=== PATIENT | female | born 1960 | race Hispanic/Latino ===

== ENCOUNTER 2017-05-26 17:07 | Emergency (ER) | payer BC ==
[2017-05-26 17:07] VITALS: BMI 20.5
[2017-05-26] MEDS ORDERED: Sodium Chloride 0.9% 1,000 ML IV STA (17:51)
[2017-05-26 18:02] VITALS: TEMP 97.6
[2017-05-26 18:29] LABS: URINE BILIRUBIN NEGATIVE (NEGATIVE); URINE BLOOD NEGATIVE (NEGATIVE); URINE GLUCOSE (UA) NEGATIVE (NEGATIVE); URINE KETONE NEGATIVE (NEGATIVE); URINE LEUKOCYTE ESTERASE NEGATIVE Leu/uL (NEGATIVE); URINE PROTEIN TRACE mg/dL (<30 mg/dL); URINE UROBILINOGEN 0.2 E.U./dL (<1 E.U./dL)
[2017-05-26 18:38] LABS: URINE APPEARANCE CLEAR (CLEAR); URINE COLOR YELLOW (YELLOW)
[2017-05-26 18:41] LABS: BASO # 0.02 K/mm3 (0.0-2.0); BASO % 0.5 % (0.0-3.0); EOS # 0.2 (0.0-0.7); EOS % 3.9 % (1.5-5.0); GRAN # 2.18 (1.4-6.5); HEMATOCRIT 38.7 % (36.0-48.0); LYMPH # 1.5 (1.2-3.4); LYMPH % 35.5 % (22.0-35.0); MEAN CELL VOLUME 89.6 fl (80.0-105.0); MEAN CORPUSCULAR HEMOGLOBIN 28.9 pg (25.0-35.0); MEAN CORPUSCULAR HGB CONC 32.3 g/dl (31.0-37.0); MEAN PLATELET VOLUME 10.6 fl (7.0-11.0); MONO # 0.3 (0.1-0.6); MONO % 7.1 % (1.0-6.0); RED CELL DISTRIBUTION WIDTH 12.4 % (11.5-14.5); WHITE BLOOD COUNT 4.1 10^3/ul (4.5-11.0)
[2017-05-26 18:42] LABS: URINE BACTERIA FEW (NEG); URINE RBC NEGATIVE /hpf (0-2)
[2017-05-26 18:52] LABS: ALB/GLOB RATIO 1.3 (1.1-1.8); ALKALINE PHOSPHATASE 96 U/L (38-126); ALT/SGPT 38 U/L (7-56); AST/SGOT 41 U/L (14-36); BILIRUBIN,TOTAL 0.5 mg/dL (0.2-1.3); BLOOD UREA NITROGEN 14 mg/dL (7-21); CALCIUM 9.5 mg/dL (8.4-10.5); CARBON DIOXIDE 31 mmol/L (21-33); CHLORIDE 101 mmol/L (98-107); GFR AFRICAN-AMERICAN > 60; GLUCOSE,RANDOM 94 mg/dL (70-110); LIPASE 67 U/L (23-300); POTASSIUM 4.3 mmol/L (3.6-5.0); SODIUM 137 mmol/L (132-148)
[2017-05-26 18:58] LABS: INR 1.09 (0.93-1.08); PARTIAL THROMBOPLASTIN TIME 32.4 Seconds (25.1-36.5)
[2017-05-26] MEDS ORDERED: Iohexol 350 MG/100 ML VIAL ONE (19:03)
--- NOTE | 2017-05-26 20:33 | CT ---
EXAM: CT Abdomen and Pelvis With Intravenous Contrast EXAM DATE/TIME: 05/26/2017 5:55 PM CLINICAL HISTORY: 57 years old, female; Pain; Abdominal pain; Prior surgery; Surgery type: Appendectomy - TECHNIQUE: Axial computed tomography images of the abdomen and pelvis with intravenous contrast. All CT scans at this facility use one or more dose reduction techniques, viz.: automated exposure control; ma/kV adjustment per patient size (including targeted exams where dose is matched to indication; i.e. head); or iterative reconstruction technique. Coronal and sagittal reformatted images were created and reviewed. CONTRAST: 94 mL of OMNI 350 administered intravenously. COMPARISON: Prior CT abdomen and pelvis of 2016-08-13 FINDINGS: LIMITATIONS: Mild streak/motion artifact. LOWER THORAX: Stable appearance of scarring in the lingula anteriorly. ABDOMEN: LIVER: Mild periportal edema in the liver. Enlargement of the intrahepatic IVC and hepatic veins. This finding was also seen on the prior CT. It could be due to IV fluid administration, but can also be a sign of right heart dysfunction. Recommend clinical correlation. In GALLBLADDER AND BILE DUCTS: No CT evidence of acute cholecystitis. No evidence of significant biliary ductal dilatation. PANCREAS: No CT evidence of acute pancreatitis. SPLEEN: No acute abnormality of the spleen identified. ADRENALS: No acute abnormality of the adrenal glands identified. KIDNEYS AND URETERS: No acute abnormality of the kidneys identified. No evidence of significant hydrouereteronephrosis. STOMACH AND BOWEL: No acute abnormality of the stomach, small bowel or colon identified. No evidence of bowel obstruction. APPENDIX: Normal appendix is not seen, and there is a reported history of previous appendectomy. PELVIS: BLADDER: Mild thickening of the bladder wall. REPRODUCTIVE: Patient appears to be post partial hysterectomy. Recommend correlation with surgical history. No evidence of large adnexal masses. ABDOMEN and PELVIS: INTRAPERITONEAL SPACE: No evidence of free intraperitoneal air or fluid. BONES/JOINTS: No acute fractures or other acute bony abnormality noted. SOFT TISSUES: No acute abnormality of the visualized soft tissues is seen. VASCULATURE: No evidence of abdominal aortic aneurysm. No evidence of periaortic hemorrhage. LYMPH NODES: No evidence of diffuse lymphadenopathy. IMPRESSION: - Mild periportal edema in the liver. This is a nonspecific finding, which can be seen with IV fluid administration. Acute liver disease such as hepatitis can also cause periportal edema, however, and recommend correlation with the clinical presentation and LFTs. - Mild bladder wall thickening. This is a nonspecific finding, but can be seen with cystitis. Recommend clinical correlation. - Otherwise, no evidence of significant acute process. - See above for remaining findings.
[2017-05-26] MEDS ORDERED: Morphine 2 mg/ml ISec IVP STA (20:40)
--- NOTE | 2017-05-26 20:45 | ED PDOC ---
Arrival/HPI - General Chief Complaint: Female Genitourinary Time Seen by Provider: 05/26/17 17:38 Historian: Patient - History of Present Illness Narrative History of Present Illness (Text): 05/26/17 20:42 57yo female with no PMHx who present with complaint of suprapubic abdominal pain , right sided back pain and burning sensation at the end of urination. Notes that she has been on Macrobid for 5days without relieve. Denies nausea, vomiting , diarrhea, constipation, hematuria, chest pain, any other complaint. Past Medical History - Provider Review Nursing Documentation Reviewed: Yes - Infectious Disease Hx of Infectious Diseases: None - Tetanus Immunization Tetanus Immunization: Unknown - Reproductive Menopause: Yes - Cardiac Hx Cardiac Disorders: No Hx Pacemaker: No - Pulmonary Hx Asthma: Yes - Neurological Hx Neurological Disorder: No Hx Paralysis: No - HEENT Hx HEENT Disorder: No - Renal Hx Renal Disorder: No - Endocrine/Metabolic Hx Endocrine Disorders: No - Hematological/Oncological Hx Blood Transfusions: No Hx Blood Transfusion Reaction: No - Integumentary Hx Dermatological Disorder: No - Musculoskeletal/Rheumatological Hx Musculoskeletal Disorders: Yes (RA) Hx Rheumatoid Arthritis: Yes - Gastrointestinal Hx Gastrointestinal Disorders: No Hx Constipation: Yes - Genitourinary/Gynecological Hx Genitourinary Disorders: No - Psychiatric Hx Anxiety: Yes Hx Substance Use: No - Past Surgical History Past Surgical History: No Previous - Surgical History Hx Appendectomy: Yes Hx Section: Yes - Anesthesia Hx Anesthesia: Yes - Suicidal Assessment Feels Threatened In Home Enviroment: No Family/Social History - Physician Review Nursing Documentation Reviewed: Yes Family/Social History: Unknown Family HX Smoking Status: Never Smoked Hx Alcohol Use: No Hx Substance Use: No Hx Substance Use Treatment: No Allergies/Home Meds Allergies/Adverse Reactions: Allergies No Known Allergies Allergy (Verified 08/12/16 20:12) Home Medications: Home Meds Medication Instructions Recorded Confirmed Clonazepam [Klonopin] 2 mg PO HS 12/27/15 05/26/17 DULoxetine [Cymbalta] 30 mg PO QAM 12/27/15 05/26/17 Trazodone HCl [Trazodone HCl] 300 mg PO HS 12/27/15 05/26/17 tiZANidine [Zanaflex] 4 mg PO HS 12/27/15 05/26/17 Esomeprazole Magnesium [Nexium] 40 mg PO DAILY 12/30/15 05/26/17 Polyethylene Glycol 3350 [Miralax] 17 gm PO HS 12/30/15 08/12/16 Review of Systems - Physician Review All systems were reviewed & negative as marked: Yes - Review of Systems Constitutional: Normal Eyes: Normal ENT: Normal Respiratory: Normal Cardiovascular: Normal Gastrointestinal: Abdominal Pain. absent: Constipation, Diarrhea, Nausea, Vomiting, Hematochezia, Hematemesis Genitourinary Female: Dysuria. absent: Frequency, Hematuria Musculoskeletal: Normal Skin: Normal Neurological: Normal Endocrine: Normal Hemo/Lymphatic: Normal Psychiatric: Normal Physical Exam Vital Signs Reviewed: Yes Vital Signs Temp Pulse Resp BP Pulse Ox 05/26/17 18:01 97.6 F 77 17 97 05/26/17 17:30 98 F 78 16 119/81 98 Temperature: Afebrile Blood Pressure: Normal Pulse: Regular Respiratory Rate: Normal Appearance: Positive for: Well-Appearing, Non-Toxic, Comfortable Pain Distress: None Mental Status: Positive for: Alert and Oriented X 3 - Systems Exam Head: Present: Atraumatic, Normocephalic Pupils: Present: PERRL Extroacular Muscles: Present: EOMI Conjunctiva: Present: Normal Mouth: Present: Moist Mucous Membranes Neck: Present: Normal Range of Motion Respiratory/Chest: Present: Clear to Auscultation, Good Air Exchange. No: Respiratory Distress, Accessory Muscle Use Cardiovascular: Present: Regular Rate and Rhythm, Normal S1, S2. No: Murmurs Abdomen: Present: Normal Bowel Sounds, Other (Soft). No: Tenderness, Distention , Peritoneal Signs, Rebound, Guarding, McBurney's Point Tender, Rovsing's Sign Present Back: Present: Normal Inspection. No: CVA Tenderness Upper Extremity: Present: Normal Inspection. No: Cyanosis, Edema Lower Extremity: Present: Normal Inspection. No: Edema Neurological: Present: GCS=15, CN II-XII Intact, Speech Normal Skin: Present: Warm, Dry, Normal Color. No: Rashes Psychiatric: Present: Alert, Oriented x 3, Normal Insight, Normal Concentration Medical Decision Making ED Course and Treatment: 05/26/17 20:45 PT present for stated history. She was hemodyanmidally stable in ED. Her pain was controlled. Lab was unremarkable . No UTI was noted. Abdominal/Pelvic CT IMPRESSION: - Mild periportal edema in the liver. This is a nonspecific finding, which can be seen with IV fluid administration. Acute liver disease such as hepatitis can also cause periportal edema, however, and recommend correlation with the clinical presentation and LFTs. - Mild bladder wall thickening. This is a nonspecific finding, but can be seen with cystitis. Recommend clinical correlation. - Otherwise, no evidence of significant acute process. - See above for remaining findings. Dictated By: Ellen Royal MD Dictated Date/Time: 05/26/172032 Signed By: Ellen Royal MD Date Signed: 2032 Tra Result was DW the pt. She will be DC home with a rx of Ibuprofen. Referred to her PMD/GERIATRIC PHYSICIAN. Advised TRT ED for any new or worsening symptoms. - Lab Interpretations Lab Results: 05/26/17 18:25 05/26/17 18:25 Lab Results 05/26/17 18:26: Urine Color Yellow, Urine Appearance Clear, Urine pH 6.0, Ur Specific [place] >= 1.030, Urine Protein Trace H, Urine Glucose (UA) Negative, Urine Ketones Negative, Urine Blood Negative, Urine Nitrate Negative, Urine Bilirubin Negative, Urine Urobilinogen 0.2, Ur Leukocyte Esterase Negative, Urine RBC Negative, Urine WBC 1 - 3, Ur Epithelial Cells 1 - 3, Urine Bacteria Few 05/26/17 18:25: Sodium 137, Potassium 4.3, Chloride 101, Carbon Dioxide 31, Anion Gap 9 L, BUN 14, Creatinine 0.8, Est GFR ( Amer) > 60, Est GFR (Non -Af Amer) > 60, Random Glucose 94, Calcium 9.5, Total Bilirubin 0.5, AST 41 H, ALT 38, Alkaline Phosphatase 96, Total Protein 7.0, Albumin 4.0, Globulin 3.0, Albumin/Globulin Ratio 1.3, Lipase 67 05/26/17 18:25: PT 11.9, INR 1.09 H, APTT 32.4 05/26/17 18:25: WBC 4.1 L, RBC 4.32, Hgb 12.5, Hct 38.7, MCV 89.6, MCH 28.9, MCHC 32.3, RDW 12.4, Plt Count 172, MPV 10.6, Gran % 53.0, Lymph % (Auto) 35.5 H , [place] % (Auto) 7.1 H, Eos % (Auto) 3.9, Baso % (Auto) 0.5, Gran # 2.18, Lymph # 1.5, [place] # 0.3, Eos # 0.2, Baso # 0.02 - RAD Interpretation Radiology Orders: 05/26/17 17:55 ABD & PELVIS IV CONTRAST ONLY [CT] Stat - Medication Orders Current Medication Orders: Discontinued Medications Famotidine (Pepcid) 20 mg IVP STAT STA Stop: 05/26/17 17:52 Last Admin: 05/26/17 18:11 Dose: 20 mg IVP Administration Document 05/26/17 18:11 GMD (Rec: 05/26/17 18:11 D [place] [id number]) Charges for Administration # of IVP Administrations 1 Sodium Chloride (Sodium Chloride 0.9%) 1,000 mls @ 1,000 mls/hr IV .Q1H STA Stop: 05/26/17 18:50 Last Admin: 05/26/17 18:12 Dose: 1,000 mls/hr eMAR Start Stop Document 05/26/17 18:12 GMD (Rec: 05/26/17 18:12 GMD [place] [id number]) Intravenous Solution Start Date 05/26/17 Start Time 18:12 End Date 05/26/17 End time 19:12 Total Infusion Time 60 Ketorolac Tromethamine (Toradol) 30 mg IVP STAT STA Stop: 05/26/17 19:32 Last Admin: 05/26/17 19:37 Dose: 30 mg MAR Pain Assessment Document 05/26/17 19:37 GMD (Rec: 05/26/17 19:37 D [place] [id number]) Pain Reassessment Is this a pain reassessment? No Sleep Is patient sleeping during reassessment? No Presence of Pain Presence of Pain Yes IVP Administration Document 05/26/17 19:37 GMD (Rec: 05/26/17 19:37 GMD [place] [id number]) Charges for Administration # of IVP Administrations 1 Morphine Sulfate (Morphine) 2 mg IVP STAT STA Stop: 05/26/17 20:41 Ondansetron HCl (Zofran Inj) 4 mg IVP STAT STA Stop: 05/26/17 17:52 Last Admin: 05/26/17 18:11 Dose: 4 mg IVP Administration Document 05/26/17 18:11 GMD (Rec: 05/26/17 18:11 GMD [facility] [id number]) Charges for Administration # of IVP Administrations 1 Disposition/Present on Arrival - Present on Arrival Any Indicators Present on Arrival: No History of DVT/PE: No History of Uncontrolled Diabetes: No Urinary Catheter: No History of Decub. Ulcer: No History Surgical Site Infection Following: None - Disposition Have Diagnosis and Disposition been Completed?: Yes Diagnosis: Abdominal pain Disposition: HOME/ ROUTINE Disposition Time: 20:50 Patient Plan: Discharge Condition: STABLE Discharge Instructions (ExitCare): Abdominal Pain (ED) Additional Instructions: Follow up with your doctor Return to ED for any new or worsening symptoms Prescriptions: Ibuprofen [Motrin Tab] 600 mg PO Q6 #20 tab Referrals: Bernadette Mcnair MD [Primary Care Provider] - Follow up with primary
[2017-05-26 20:58] VITALS: BP 131/87; PULSE 72; RESP 18; O2SAT 96
== END 2017-05-26 21:07 | disposition home or self-care (01) ==
LOC: ED 17:07
DX: R10.9 Unspecified abdominal pain (principal)
CPT/HCPCS: 74177; 80053; 81001; 83690; 85025; 85610; 85730; 96361; 96374; 96375; 99285; J1885; J2405; J7040; Q9967

== ENCOUNTER 2018-09-29 12:51 | Emergency (ER) | payer BC ==
[2018-09-29 13:00] VITALS: BMI 22.1
[2018-09-29 13:11] VITALS: PULSE 68; RESP 18; TEMP 98
--- NOTE | 2018-09-29 14:14 | ED PDOC ---
Arrival/HPI - General Chief Complaint: Weakness/Neurological Deficit Time Seen by Provider: 09/29/18 12:56 Historian: Patient - History of Present Illness Narrative History of Present Illness (Text): Dana Shen is a 58 year old female, with past medical history of , depression on trazodone, anxiety on klonopin, rheumatoid arthritis, and drug abuse, who presents to the emergency department complaining of slurred speech since 2 months. Patient notes associated dizziness, difficulty balancing, and difficulty swallowing. Patient describes dizziness as lightheadedness. Patient notes difficulty walking up stairs. Patient's daughter who is a nurse practitioner advised patient to visit emergency department 2 months ago. Patient informs seeing neurologist for current complaint 1 month ago and was sent for MRI; MRI not obtained due to lack of insurance coverage. Patient requesting MRI in ED. Patient denies any new medications. Denies headache. Denies vision changes. Denies suicidal or homicidal ideation. Denies chest pain or cough. Denies abdominal pain, nausea, vomiting, diarrhea, dark/bloody stools. Denies dysuria, hematuria, urinary/bowel changes. Denies back pain or neck pain. Denies rash or diaphoresis. No other complaints. No PMD Time/Duration: > month (2 months) Symptom Onset: Sudden Symptom Course: Unchanged Activities at Onset: Light Context: Home Past Medical History - Provider Review Nursing Documentation Reviewed: Yes - Infectious Disease Hx of Infectious Diseases: None - Tetanus Immunization Tetanus Immunization: Unknown - Cardiac Hx Cardiac Disorders: No Hx Pacemaker: No - Pulmonary Hx Asthma: Yes - Neurological Hx Neurological Disorder: No Hx Paralysis: No - HEENT Hx HEENT Disorder: No - Renal Hx Renal Disorder: No - Endocrine/Metabolic Hx Endocrine Disorders: No - Hematological/Oncological Hx Blood Transfusions: No Hx Blood Transfusion Reaction: No - Integumentary Hx Dermatological Disorder: No - Musculoskeletal/Rheumatological Hx Musculoskeletal Disorders: Yes (RA) Hx Rheumatoid Arthritis: Yes - Gastrointestinal Hx Gastrointestinal Disorders: No Hx Constipation: Yes - Genitourinary/Gynecological Hx Genitourinary Disorders: No - Psychiatric Hx Anxiety: Yes Hx Substance Use: No - Past Surgical History Past Surgical History: No Previous - Surgical History Hx Appendectomy: Yes Hx Section: Yes (x 3) - Anesthesia Hx Anesthesia: Yes Hx Anesthesia Reactions: No Hx Malignant Hyperthermia: No - Suicidal Assessment Feels Threatened In Home Enviroment: No Family/Social History - Physician Review Nursing Documentation Reviewed: Yes Family/Social History: Unknown Family HX Smoking Status: Never Smoked Hx Alcohol Use: No Hx Substance Use: No Hx Substance Use Treatment: No Allergies/Home Meds Allergies/Adverse Reactions: Allergies No Known Allergies Allergy (Verified 08/12/16 20:12) Home Medications: Home Meds Medication Instructions Recorded Confirmed Clonazepam [Klonopin] 2 mg PO HS 12/27/15 09/29/18 Trazodone HCl 300 mg PO HS 12/27/15 09/29/18 Review of Systems - Physician Review All systems were reviewed & negative as marked: Yes - Review of Systems Constitutional: absent: Fevers, Night Sweats, Other (chills) Eyes: absent: Vision Changes Respiratory: absent: SOB, Cough Cardiovascular: absent: Chest Pain Gastrointestinal: absent: Abdominal Pain, Diarrhea, Nausea, Vomiting, Other (bowel changes) Genitourinary Female: absent: Dysuria, Hematuria, Other (urinary changes) Musculoskeletal: absent: Back Pain, Neck Pain Skin: absent: Rash Neurological: Dizziness (described as "lightheadedness" ). absent: Headache Endocrine: absent: Diaphoresis Psychiatric: absent: Suicidal Ideation, Other (homicidal ideation) Physical Exam Vital Signs Reviewed: Yes Vital Signs Temp Pulse Resp BP Pulse Ox 09/29/18 12:52 98.0 F 68 18 142/88 100 Temperature: Afebrile Blood Pressure: Normal Pulse: Regular Respiratory Rate: Normal Appearance: Positive for: Well-Appearing, Non-Toxic, Comfortable Pain Distress: None Mental Status: Positive for: Alert and Oriented X 3 - Systems Exam Head: Present: Atraumatic, Normocephalic Pupils: Present: PERRL Extroacular Muscles: Present: EOMI Conjunctiva: Present: Normal Ears: Present: Normal, NORMAL TM. No: Erythema Mouth: Present: Moist Mucous Membranes Pharnyx: Present: Normal. No: ERYTHEMA, EXUDATE, TONSILS ENLARGED Nose (External): Present: Atraumatic Nose (Internal): Present: Normal Inspection Neck: Present: Normal Range of Motion, Meningeal Signs. No: MIDLINE TENDERNESS Respiratory/Chest: Present: Clear to Auscultation, Good Air Exchange. No: Respiratory Distress, Accessory Muscle Use, Wheezes, Rales, Rhonchi Cardiovascular: Present: Regular Rate and Rhythm, Normal S1, S2. No: Murmurs, Rub, Gallop Abdomen: Present: Normal Bowel Sounds. No: Tenderness, Distention, Peritoneal Signs, Rebound, Guarding Back: Present: Normal Inspection. No: CVA Tenderness, Midline Tenderness Upper Extremity: Present: Normal Inspection, Normal ROM, NORMAL PULSES, Neurovascularly Intact, Capillary Refill < 2s. No: Cyanosis, Edema Lower Extremity: Present: Normal Inspection, NORMAL PULSES, Normal ROM, Neurovascularly Intact, Capillary Refill < 2 s. No: Edema Neurological: Present: GCS=15, CN II-XII Intact, Motor Func Grossly Intact, Normal Sensory Function, Normal Cerebellar Funct, Gait Normal, Memory Normal. No: Speech Normal (slurred speech) Skin: Present: Warm, Dry, Normal Color. No: Rashes Psychiatric: Present: Alert, Oriented x 3, Normal Insight, Normal Concentration Medical Decision Making ED Course and Treatment: 09/29/18 12:56 Impression: Dana Shen is a 58 year old female with a past medical history of depression on trazodone, anxiety on klonopin, rheumatoid arthritis, and drug abuse, who presents to the emergency department complaining of slurred speech since 2 months. Patient informs of associated dizziness, difficulty balancing, and difficulty swallowing. Describes dizziness as lightheadedness. Patient denies F/C/N/V/D. Denies chest pain. Denies headache. Denies abdominal pain and dark/bloody stool. On exam; slurred speech, otherwise unremarkable neuro exam. Plan: -- Labs -- CT Head W/O Contrast -- EKG -- Chest X-Ray -- Reassess and disposition Prior Visits: Notes and results from previous visits were reviewed. Progress Notes: 09/29/18 12:56 Reviewed EKG, shows: NSR at 68 BPM. No STEMI. 09/29/18 15:50 labs, imaging largely unremarkable. Pending CMP. Pt seeks to sign out AMA. besides slurred speech, neuro exam remains unremarkable, good capacity to make decisions, pt fully aware of consequences of leaving AMA including or disability as workup is incomplete. I endorsed need to follow up and to return at any time. She notes understanding. The patient declines to have further medical evaluation and treatment and wishes to leave the Emergency Department. This action is against my medical advice to the patient, and with informed refusal. The patient was told that evaluation and treatment are necessary and a full explanation of the rationale was given. The risks of leaving were explained to the patient and include, but are not limited to, worsening of known or currently unknown conditions, permanent disability and from undiagnosed or untreated conditions The patient has the capacity to make this informed decision and understands the clinical situation and my explanation of the risks of leaving. The patient voluntarily accepts these risks, and a signed AMA form documenting our conversation was obtained. The patient was given the opportunity to ask questions and reconsider. The patient was encouraged to return to the Emergency Department at any time for further care. - RAD Interpretation Radiology Orders: 09/29/18 13:19 HEAD W/O CONTRAST [CT] Stat CHEST TWO VIEWS (PA/LAT) [RAD] Stat - EKG Interpretation Interpreted by ED Physician: Yes Type: 12 lead EKG - Scribe Statement The provider has reviewed the documentation as recorded by the Scribe Bobby Ga All medical record entries made by the Scribe were at my direction and personally dictated by me. I have reviewed the chart and agree that the record accurately reflects my personal performance of the history, physical exam, medical decision making, and the department course for this patient. I have also personally directed, reviewed, and agree with the discharge instructions and disposition. Disposition/Present on Arrival - Present on Arrival Any Indicators Present on Arrival: No History of DVT/PE: No History of Uncontrolled Diabetes: No Urinary Catheter: No History of Decub. Ulcer: No History Surgical Site Infection Following: None - Disposition Have Diagnosis and Disposition been Completed?: Yes Diagnosis: Slurred speech Disposition: AGAINST MEDICAL ADVICE Disposition Time: 15:53 Condition: STABLE Referrals: PCP,NO [Primary Care Provider] - Follow up with primary Forms: [employer] (Japanese)
--- NOTE | 2018-09-29 14:27 | CT ---
Date of service: 09/29/2018 PROCEDURE: CT HEAD WITHOUT CONTRAST. HISTORY: slurred speech x2mo COMPARISON: None available. TECHNIQUE: Axial computed tomography images were obtained through the head/brain without intravenous contrast. Radiation dose: Total exam DLP = 864.24 mGy-cm. This CT exam was performed using one or more of the following dose reduction techniques: Automated exposure control, adjustment of the mA and/or kV according to patient size, and/or use of iterative reconstruction technique. FINDINGS: HEMORRHAGE: No intracranial hemorrhage. BRAIN: No mass effect or edema. No atrophy or chronic microvascular ischemic changes. VENTRICLES: Unremarkable. No hydrocephalus. CALVARIUM: Unremarkable. PARANASAL SINUSES: Unremarkable as visualized. No significant inflammatory changes. MASTOID AIR CELLS: Unremarkable as visualized. No inflammatory changes. OTHER FINDINGS: None. IMPRESSION: No acute findings
--- NOTE | 2018-09-29 14:49 | RAD ---
Date of service: 09/29/2018 HISTORY: sob COMPARISON: 12/30/2015 TECHNIQUE: Chest PA and lateral views FINDINGS: LUNGS: No active pulmonary disease. PLEURA: No significant pleural effusion identified. No pneumothorax apparent. CARDIOVASCULAR: No aortic atherosclerotic calcification present. Normal cardiac size. No pulmonary vascular congestion. OSSEOUS STRUCTURES: No significant abnormalities. VISUALIZED UPPER ABDOMEN: Normal. OTHER FINDINGS: IMPRESSION: No active disease.
--- NOTE | 2018-09-29 14:54 | CARD ---
APPROVED REPORT Date of service: 09/29/2018 EKG Measurement Heart [id number] <Conclusion> Normal sinus rhythm Normal ECG
[2018-09-29 15:59] VITALS: BP 135/89; O2SAT 99
[2018-09-29 16:20] LABS: BASO # 0.01 K/mm3 (0.0-2.0); BASO % 0.2 % (0.0-3.0); EOS # 0.1 (0.0-0.7); EOS % 1.1 % (1.5-5.0); HEMOGLOBIN 12.8 g/dL (12.0-16.0); LYMPH # 1.8 (1.2-3.4); LYMPH % 39.9 % (22.0-35.0); MEAN CELL VOLUME 87.9 fl (80.0-105.0); MEAN CORPUSCULAR HEMOGLOBIN 28.1 pg (25.0-35.0); MEAN CORPUSCULAR HGB CONC 31.9 g/dl (31.0-37.0); MEAN PLATELET VOLUME 11.5 fl (7.0-11.0); MONO # 0.2 (0.1-0.6); RBC 4.56 10^6/uL (3.5-6.1); RED CELL DISTRIBUTION WIDTH 12.9 % (11.5-14.5); WHITE BLOOD COUNT 4.6 10^3/uL (4.5-11.0)
[2018-09-29 16:28] LABS: INR 1.05; PARTIAL THROMBOPLASTIN TIME 27.7 Seconds (26.9-38.3); PROTHROMBIN TIME 11.6 SECONDS (9.4-12.5)
== END 2018-09-29 16:01 | disposition left against medical advice (07) ==
LOC: ED 12:51
DX: R47.81 Slurred speech (principal); F41.9 Anxiety disorder, unspecified

== ENCOUNTER 2018-11-07 07:15 | Emergency (ER) | payer BC ==
[2018-11-07 07:16] VITALS: BMI 22.1
[2018-11-07 07:34] VITALS: BP 141/72; RESP 19; O2SAT 99
[2018-11-07 08:11] LABS: URINE APPEARANCE CLEAR (CLEAR); URINE BILIRUBIN NEGATIVE (NEGATIVE); URINE BLOOD NEGATIVE (NEGATIVE); URINE COLOR YELLOW (YELLOW); URINE GLUCOSE (UA) NEGATIVE (NEGATIVE); URINE LEUKOCYTE ESTERASE NEGATIVE Leu/uL (NEGATIVE); URINE PROTEIN NEGATIVE mg/dL (<30 mg/dL); URINE UROBILINOGEN 0.2 E.U./dL (<1 E.U./dL)
[2018-11-07 08:48] VITALS: PULSE 80; TEMP 97.9
--- NOTE | 2018-11-07 09:00 | ED PDOC ---
Arrival/HPI - General Chief Complaint: Female Genitourinary Time Seen by Provider: 11/07/18 07:24 Historian: Patient - History of Present Illness Narrative History of Present Illness (Text): 11/07/18 08:54 A 58 year old female, whose past medical history includes , depression on trazodone, anxiety on klonopin, rheumatoid arthritis, and drug abuse, presents to the emergency department complaining of sensation of bladder "not completely emptying." Patient denies any hematuria, dysuria, nausea, vomiting, fever, or any other complaints at this time. Past Medical History - Provider Review Nursing Documentation Reviewed: Yes - Infectious Disease Hx of Infectious Diseases: None - Tetanus Immunization Tetanus Immunization: Unknown - Cardiac Hx Cardiac Disorders: No Hx Pacemaker: No - Pulmonary Hx Asthma: Yes - Neurological Hx Neurological Disorder: No Hx Paralysis: No - HEENT Hx HEENT Disorder: No - Renal Hx Renal Disorder: No - Endocrine/Metabolic Hx Endocrine Disorders: No - Hematological/Oncological Hx Blood Transfusions: No Hx Blood Transfusion Reaction: No - Integumentary Hx Dermatological Disorder: No - Musculoskeletal/Rheumatological Hx Musculoskeletal Disorders: Yes (RA) Hx Rheumatoid Arthritis: Yes - Gastrointestinal Hx Gastrointestinal Disorders: No Hx Constipation: Yes - Genitourinary/Gynecological Hx Genitourinary Disorders: No - Psychiatric Hx Anxiety: Yes Hx Substance Use: No - Past Surgical History Past Surgical History: No Previous - Surgical History Hx Appendectomy: Yes Hx Section: Yes (x 3) Hx Hysterectomy: Yes - Anesthesia Hx Anesthesia: Yes Hx Anesthesia Reactions: No Hx Malignant Hyperthermia: No - Suicidal Assessment Feels Threatened In Home Enviroment: No Family/Social History - Physician Review Nursing Documentation Reviewed: Yes Family/Social History: No Known Family HX Smoking Status: Never Smoked Hx Alcohol Use: No Hx Substance Use: No Hx Substance Use Treatment: No Allergies/Home Meds Allergies/Adverse Reactions: Allergies No Known Allergies Allergy (Verified 08/12/16 20:12) Home Medications: Home Meds Medication Instructions Recorded Confirmed Clonazepam [Klonopin] 2 mg PO HS 12/27/15 11/07/18 Trazodone HCl 300 mg PO HS 12/27/15 11/07/18 Review of Systems - Physician Review All systems were reviewed & negative as marked: Yes - Review of Systems Constitutional: absent: Fevers Gastrointestinal: absent: Nausea, Vomiting Genitourinary Female: Urine Output Changes (sensation of bladder not completely emptying, as per patient.). absent: Dysuria, Hematuria Physical Exam Vital Signs Reviewed: Yes Vital Signs Temp Pulse Resp BP Pulse Ox 11/07/18 08:47 97.9 F 80 19 99 11/07/18 07:31 97.7 F 81 19 141/72 99 Temperature: Afebrile Blood Pressure: Normal Pulse: Regular Respiratory Rate: Normal Appearance: Positive for: Well-Appearing, Non-Toxic, Comfortable Pain Distress: None Mental Status: Positive for: Alert and Oriented X 3 - Systems Exam Head: Present: Atraumatic, Normocephalic Pupils: Present: PERRL Extroacular Muscles: Present: EOMI Conjunctiva: Present: Normal Mouth: Present: Moist Mucous Membranes Neck: Present: Normal Range of Motion Respiratory/Chest: Present: Clear to Auscultation, Good Air Exchange. No: Respiratory Distress, Accessory Muscle Use Cardiovascular: Present: Regular Rate and Rhythm, Normal S1, S2. No: Murmurs Abdomen: No: Tenderness, Distention, Peritoneal Signs Back: Present: Normal Inspection Upper Extremity: Present: Normal Inspection. No: Cyanosis, Edema Lower Extremity: Present: Normal Inspection. No: Edema Neurological: Present: GCS=15, CN II-XII Intact, Speech Normal Skin: Present: Warm, Dry, Normal Color. No: Rashes Psychiatric: Present: Alert, Oriented x 3, Normal Insight, Normal Concentration Medical Decision Making ED Course and Treatment: 11/07/18 08:55 Impression: 58 year old female with sensation of bladder not completely emptying. No acute findings on physical exam. Plan: -- Reassess and disposition Progress Notes: 11/07/18 08:55 Patient's bladder scan shows 8 mL post void. Patient does not have a PMD and will follow-up with clinic. - Lab Interpretations Lab Results: Urine Color Yellow (YELLOW) 11/07/18 07:50 Urine Appearance Clear (CLEAR) 11/07/18 07:50 Urine pH 6.0 (4.7-8.0) 11/07/18 07:50 Ur Specific [place] 1.025 (1.005-1.035) 11/07/18 07:50 Urine Protein Negative mg/dL (<30 mg/dL) 11/07/18 07:50 Urine Glucose (UA) Negative mg/dL (NEGATIVE) 11/07/18 07:50 Urine Ketones Negative mg/dL (NEGATIVE) 11/07/18 07:50 Urine Blood Negative (NEGATIVE) 11/07/18 07:50 Urine Nitrate Negative (NEGATIVE) 11/07/18 07:50 Urine Bilirubin Negative (NEGATIVE) 11/07/18 07:50 Urine Urobilinogen 0.2 E.U./dL (<1 E.U./dL) 11/07/18 07:50 Ur Leukocyte Esterase Negative [place]/uL (NEGATIVE) 11/07/18 07:50 - Scribe Statement The provider has reviewed the documentation as recorded by the Mariela Hernández Provider Scribe Attestation: All medical record entries made by the Scribe were at my direction and personally dictated by me. I have reviewed the chart and agree that the record accurately reflects my personal performance of the history, physical exam, medical decision making, and the department course for this patient. I have also personally directed, reviewed, and agree with the discharge instructions and disposition. Disposition/Present on Arrival - Present on Arrival Any Indicators Present on Arrival: No History of DVT/PE: No History of Uncontrolled Diabetes: No Urinary Catheter: No History of Decub. Ulcer: No History Surgical Site Infection Following: None - Disposition Have Diagnosis and Disposition been Completed?: Yes Diagnosis: Urine frequency Disposition: HOME/ ROUTINE Disposition Time: 08:15 Condition: GOOD Discharge Instructions (ExitCare): Urinary Tract Infection, Adult (DC) Additional Instructions: GIL PERDOMO, thank you for letting us take care of you today. The emergency medical care you received today was directed at your acute symptoms. If you were prescribed any medication, please fill it and take as directed. It may take several days for your symptoms to resolve. Return to the Emergency Department if your symptoms worsen, do not improve, or if you have any other problems. Please contact your doctor or call one of the physicians/clinics you have been referred to that are listed on the Patient Visit Information form that is included in your discharge packet. Bring any paperwork you were given at discharge with you along with any medications you are taking to your follow up visit. Our treatment cannot replace ongoing medical care by a primary care provider outside of the emergency department. Thank you for allowing the [facility] team to be part of your care today. You had a urine culture: It will take several days for the results, if any change in treatment is needed we will contact you. Follow up with the clinic this week for re-evaluation and further management. Prescriptions: Sulfamethoxazole/Trimethoprim [Bactrim Ds Tablet] 1 each PO BID #14 tablet Referrals: [facility] [Outside] - Follow up with primary Devi Rosas MD [Medical Doctor] - Follow up with primary Forms: [facility] (Slovak)
== END 2018-11-07 08:48 | disposition home or self-care (01) ==
LOC: ED 07:15
DX: R35.0 Frequency of micturition (principal); M06.9 Rheumatoid arthritis, unspecified; F32.9 Major depressive disorder, single episode, unspecified